=== PATIENT | male | born 1975 | race Caucasian/White ===

== ENCOUNTER → 2016-04-20 | Outpatient (CLI) | payer BC ==
--- NOTE | 2016-04-20 12:08 | REP ---
Renal and bladder ultrasound: There are no comparison studies. The kidneys are normal size: The right kidney measures 12.7 x 6.0 x 5.5 cm. Left kidney measures 12.6 x 6.3 x 5.7 cm. Renal cortical echogenicity is normal bilaterally. There is no hydronephrosis on the right on the left. There are no renal calculi, masses or cysts on the right on the left. Bladder: There are bilateral ureteral jets with color Doppler assessment. The bladder is adequately distended. No bladder wall polyps or masses are identified. Postvoid view of the bladder reveals minimal visible residual fluid. Impression: Essentially negative renal and bladder ultrasound Signed by Kang Brasher MD 04/20/2016 12:00 P
== END ==
LOC: M RAD 11:27
DX: N39.0 Urinary tract infection, site not specified (principal); R31.9 Hematuria, unspecified

== ENCOUNTER 2016-05-04 15:18 | Inpatient (IN) | payer BC ==
[~2016-05-04] VITALS: Ht 177.8 cm; Wt 88.0 kg
[2016-05-04] MEDS ORDERED: KETOROLAC 30 MG/ML VIAL (J1885) As Ordered ONE (16:12)
[2016-05-04 16:34] LABS: BASO % 0.4 % (0.0-1.0); EOS # 0.1 K/mm3 (0.0-0.50); EOS % 0.7 % (0.0-3.0); LARGE UNSTAINED CELL # 0.2 K/mm3 (0.0-0.4); LARGE UNSTAINED CELL % 2.5 % (0.0-4.0); LYMPH # 1.5 K/mm3 (1.5-4.5); LYMPH % 16.2 % (24.0-44.0); MEAN CORPUSCULAR HEMOGLOBIN 29.3 pg (27.0-33.0); MEAN CORPUSCULAR HGB CONC 33.3 g/dl (32.0-36.5); MEAN CORPUSCULAR VOLUME 88.2 fl (80.0-96.0); MONO # 0.4 K/mm3 (0.0-0.8); MONO % 4.8 % (0.0-5.0); NEUTROPHILS # 6.9 K/mm3 (1.8-7.7); NEUTROPHILS % 75.4 % (36.0-66.0); PLATELET COUNT, AUTOMATED 410 k/mm3 (150-450); RED CELL DISTRIBUTION WIDTH 12.5 % (11.5-14.5); WHITE BLOOD COUNT 9.2 K/mm3 (4.0-10.0)
[2016-05-04 16:51] LABS: ALBUMIN 2.8 GM/DL (3.2-5.2); ALBUMIN/GLOBULIN RATIO 0.78 (1.00-1.93); ALKALINE PHOSPHATASE 122 U/L (45-117); ALT/SGPT 59 U/L (12-78); ANION GAP 10 MEQ/L (8-16); AST/SGOT 29 U/L (15-37); BILIRUBIN,DIRECT 0.1 MG/DL (0.0-0.2); BILIRUBIN,TOTAL 0.4 MG/DL (0.2-1.0); BLOOD UREA NITROGEN 13 MG/DL (7-18); CALCIUM LEVEL 8.2 MG/DL (8.5-10.1); CARBON DIOXIDE LEVEL 27 MEQ/L (21-32); CHLORIDE LEVEL 104 MEQ/L (98-107); CREATININE FOR GFR 0.74 MG/DL (0.70-1.30); GLOMERULAR FILTRATION RATE > 60.0 (>60); GLUCOSE, FASTING 91 MG/DL (70-105); SODIUM LEVEL 141 MEQ/L (136-145); TOTAL PROTEIN 6.4 GM/DL (6.4-8.2)
--- NOTE | 2016-05-04 17:17 | REP ---
CT ABDOMEN PELVIS WITHOUT IV CONTRAST: 05/04/2016. Clinical history: Abdominal pain, nonfocal exam, renal colic. Comparison: Renal ultrasound 04/20/2016. Noncontrast protocol utilized with coronal and sagittal reconstructions. CT abdomen: Lung bases clear and without nodule, infiltrate or effusion. No hiatal hernia. Heart not enlarged. There is no pericardial thickening or effusion. Liver, spleen, gallbladder, pancreas and adrenal glands are unremarkable. Stomach collapsed without focal abnormality. Small bowel loops in the abdomen proper without dilatation. Abdominal portion of the colon with stool and gas but no colitis or diverticulitis. There aorta has a few calcifications but no aneurysm. There is no periaortic or other retroperitoneal adenopathy. No pancreatic inflammatory change or adenopathy. Adrenal glands without nodular mass. Kidneys show no stone, hydronephrosis, mass or cyst. No hydroureter or ureteral stone on either side. Bone windows show degenerative disc changes and discogenic sclerosis at the C3-4 with marginal osteophytes anteriorly and posteriorly along with associated disc bulge circumferentially. Lesser degenerative changes at other levels. No compression fracture or destructive lesion. Visualized ribs intact. CT pelvis: Bony hips, pelvis, sacrum, SI joints, lumbosacral junction were intact without acute finding. There is discogenic endplate change at L5, S1 with disc space narrowing and vacuum phenomenon. Bladder is nearly empty. In the deep pelvis, there is a very large sigmoid diverticular abscess centrally slightly displacing the sigmoid towards the right. There is diverticulosis of the mid to distal sigmoid with the abscess appearing to arise just paramedian to the right of midline point of sigmoid. The abscess measures 11.8 cm vertical x 6.4 cm transverse x 9.1 cm AP. Air bubble is seen within it. There are inflammatory changes in the fat adjacent to that abscess. On lung window review, there is no perforation or free air in the upper abdomen. There are some deon-sigmoid bubbles at the abscess noted with diverticulosis minimally in the distal left colon and proximal sigmoid. Rectum unremarkable. No ventral or inguinal hernia nor inguinal adenopathy. Impression: 1. The deep pelvis shows a 11.8 x 9.1 x 6.4 cm sigmoid diverticular abscess arising from the mid to distal sigmoid centrally and just to the right of midline, displacing the sigmoid toward the right and with inflammatory changes in the fat adjacent to that abscess. There are few other areas with diverticulosis; the distal left colon and proximal sigmoid but no other areas of colitis or diverticulitis and no free air or perforation. Appendix seen and normal. The small bowel loops intact. 2. Solid organs in the upper abdomen, gallbladder and stomach are all unremarkable. No hiatal hernia. Bones intact. No ascites or adenopathy. Signed by Kuldip Velazquez MD 05/05/2016 10:58 A
[2016-05-04] MEDS ORDERED: ZOSYN 3.375 GM VIAL (J2543) As Ordered ONE (17:31)
[2016-05-04] MEDS ORDERED: NORCO, ANEXSIA 5/325MG TABLET (HYDROcodone/ACETAMINOPHEN) PO PRN (20:45)
[2016-05-04] MEDS ORDERED: ACETAMINOPHEN TAB 650MG DOSE (2X325MG) PO PRN (20:45)
[2016-05-04] MEDS ORDERED: ONDANSETRON 4MG/2ML VIAL (J2405) IV PRN (20:45)
[2016-05-04] MEDS ORDERED: KETOROLAC 30 MG/ML VIAL (J1885) IV PRN (20:45)
[2016-05-04] MEDS ORDERED: MORPHINE 2 MG/ML 1ML SYRINGE IV PRN (20:45)
--- NOTE | 2016-05-04 21:40 | EDDOCDS ---
Physician Documentation [facility] Name: Jewel Hernandez Age: 40 yrs Sex: Male : 1975 Arrival Date: 05/04/2016 Time: 15:18 Bed I3 / M3 Private MD: Disposition: 05/04/16 17:25 Hospitalization ordered by Santana Smith for Observation. Preliminary diagnosis is Intra-abdominal and pelvic swelling, mass and lump - 12X6X9 CM abscess. - Bed requested for 4 Miles. - Status is Observation. jf3 - Condition is Stable. - Problem is an ongoing problem. - Symptoms have improved. Historical: - Allergies: no known allergies; - Home Meds: 1. none - PMHx: none; - PSHx: right hand; - Social history: Smoking status: Patient uses tobacco products, current every day smoker. No barriers to communication noted, The patient speaks fluent Marshallese, Speaks appropriately for age. - Family history: Not pertinent. - : The pt / caregiver states he / she is not on anticoagulants. Home medication list is obtained from the patient. - Exposure Risk Screening:: None identified. Vital Signs: 05/04 15:20 BP 138 / 72; Pulse 59; Resp 18; Temp 98.5(O); Pulse Ox 100% on R/A; Weight 88.45 kg / ct3 195 lbs (R); Height 5 ft. 10 in. (177.80 cm) (R); Pain 3/10; 19:57 BP 102 / 55; Pulse 53; Resp 18; Temp 97.0; Pulse Ox 95% ; Pain 0/10; ajs 21:10 BP 103 / 55; Pulse 77; Resp 18; Temp 98.6; Pulse Ox 98% ; ajs 15:20 Body Mass Index 27.98 (88.45 kg, 177.80 cm) ct3 MDM: 15:51 NS 0.9% 1000 ml IV at bolus once ordered. cc10 15:51 ketorolac 30 mg IVP once ordered. cc10 15:51 IV Saline Lock ordered. cc10 15:51 Undress patient appropriately for examination ordered. cc10 15:52 Basic Metabolic Profile Ordered. EDMS 15:52 CBC with Diff Ordered. EDMS 15:52 Lipase Ordered. EDMS 15:52 Liver Profile Ordered. EDMS 15:52 Urinalysis Ordered. EDMS 15:52 Urine Culture Ordered. EDMS 15:52 CT ABD & PELVIS: No Contrast Ordered. EDMS 15:52 NOTHING BY MOUTH+DIET ordered. EDMS 16:29 Urinalysis Reviewed. cc10 16:54 Financial registration complete. gjb 17:04 Basic Metabolic Profile Reviewed. cc10 17:04 CBC with Diff Reviewed. cc10 17:04 Liver Profile Reviewed. cc10 17:04 Lipase Reviewed. cc10 17:26 Piperacillin-Tazobactam 3.375 grams IVPB once over 30 mins; dilute in 50mL of NS or D5W cc10 ordered. 17:28 BED REQUEST+ADM ordered. EDMS 17:44 [facility] Payment Agreement was scanned into Livestream and attached to record. gjb 20:46 Admission / Observation Status ordered. EDMS 20:46 CT GUIDE PERC DRAIN ABSCESS Ordered. EDMS 20:46 CLEAR LIQUIDS DIET ordered. EDMS Administered Medications: 16:27 Drug: NS 0.9% 1000 ml Route: IV; Rate: bolus; Site: left hand; [facility] 17:20 Follow up: IV Status: Completed infusion; IV Intake: 1000ml jjr 16:28 Drug: ketorolac 30 mg [ketorolac 30 mg/mL (1 mL) injection solution (1 mL)] Route: IVP; [facility] Site: left hand; 17:37 Drug: Piperacillin-Tazobactam 3.375 grams [piperacillin-tazobactam 3.375 gram jjr intravenous solution] Route: IVPB; Infused Over: 30 mins; Site: left antecubital; 18:08 Follow up: IV Status: Completed infusion; IV Intake: 100ml jjr Signatures: Dispatcher [employer] EDMS Madhavi PaulRN RN rs3 Benny, Kenzie, BARIATRIC PROGRAM COORDINATOR BARIATRIC PROGRAM COORDINATOR tmm1 Kimi Lovell,RN RN Sheng West, PA-C PA-C cc10 Tony Curran RN RN jf3 Beck, Gabriela gjb Knapp, Jean RN jmk Carrie Martinez RN jjr The chart was reviewed and I authenticate all verbal orders and agree with the evaluation and treatment provided.Attachments: 17:44 [facility] Payment Agreement gj MTDD
--- NOTE | 2016-05-04 21:41 | EDDOCDS ---
Nurse's Notes [facility] Name: Jewel Hernandez Age: 40 yrs Sex: Male : 1975 Arrival Date: 05/04/2016 Time: 15:18 Bed I3 / M3 Private MD: Diagnosis: Intra-abdominal and pelvic swelling, mass and lump-12X6X9 CM abscess Presentation: 05/04 15:21 Presenting complaint: Patient states: Recently treated for UTI. C/o abdominal cramps ead over the past 10 days. Adult Sepsis Screening: The patient does not have new or worsening altered mentation. Patient's respiratory rate is less than 22. Systolic blood pressure is greater than 100. Patient has a qSOFA score of 0- Negative Sepsis Screen. Suicide/Homicide risk assessment- the patient denies having any suicidal and/or homicidal ideations and does not present with any other emotional, behavioral or mental health complaints. 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 Transition of care: patient was not received from another setting of care. 15:21 Acuity: SURENDRA Level 3 ead 15:21 Method Of Arrival: Walkin/Carried/Asstd ead Triage Assessment: 15:22 General: Appears in no apparent distress, comfortable, Behavior is appropriate for age, ead cooperative. Pain: Location: abdomen Pain currently is 2 out of 10 on a pain scale. GI: Reports lower abdominal pain, Denies nausea, vomiting. Derm: Skin is pink, warm & dry. 15:22 Pt Declines HIV testing. ead Historical: - Allergies: no known allergies; - Home Meds: 1. none - PMHx: none; - PSHx: right hand; - Social history: Smoking status: Patient uses tobacco products, current every day smoker. No barriers to communication noted, The patient speaks fluent Azeri, Speaks appropriately for age. - Family history: Not pertinent. - : The pt / caregiver states he / she is not on anticoagulants. Home medication list is obtained from the patient. - Exposure Risk Screening:: None identified. Screenin:21 Screening information is obtained from the patient. Fall risk: No risks identified. jjr Assistance ADL's: requires no assistance with activities of daily living. Abuse/DV Screen: The patient / caregiver reports he/she is: not in a situation that causes fear, pain or injury. Nutritional screening: No deficits noted. Advance Directives: There is no active DNR order. home support is adequate. Assessment: 16:19 General: Appears in no apparent distress, well nourished, well groomed, Behavior is jjr appropriate for age. Neurological: No deficits noted. Respiratory: No deficits noted. GI: Abdomen is non- distended Bowel sounds present X 4 quads. Abd is soft X 4 quads Abd is tender to palpation in right lower quadrant and left lower quadrant Reports constipation, lower abdominal pain. : Reports difficulty starting stream. Derm: Skin is pink, warm & dry. 17:42 General: Appears in no apparent distress, reports continued dull ache to lower abdomen, jjr denies needs at this time. 19:46 General: Appears in no apparent distress, comfortable, Behavior is appropriate for age, rs3 cooperative. Pain: Denies pain. Neurological: Level of Consciousness is awake, alert, Oriented to person, place, time. Cardiovascular: Capillary refill < 3 seconds Chest pain is denied. Respiratory: Airway is patent Respiratory effort is even, unlabored, Respiratory pattern is regular, symmetrical. Derm: Skin is pink, warm & dry. 21:11 General: Appears in no apparent distress, comfortable, Behavior is cooperative. Pain: jf3 Denies pain. Neurological: Level of Consciousness is awake, alert, Oriented to person, place, time. Cardiovascular: Capillary refill < 3 seconds Chest pain is denied. Respiratory: Airway is patent Respiratory effort is even, unlabored, Respiratory pattern is regular, symmetrical. Derm: Skin is pink, warm & dry. Vital Signs: 15:20 BP 138 / 72; Pulse 59; Resp 18; Temp 98.5(O); Pulse Ox 100% on R/A; Weight 88.45 kg ct3 (R); Height 5 ft. 10 in. (177.80 cm) (R); Pain 3/10; 19:57 BP 102 / 55; Pulse 53; Resp 18; Temp 97.0; Pulse Ox 95% ; Pain 0/10; ajs 21:10 BP 103 / 55; Pulse 77; Resp 18; Temp 98.6; Pulse Ox 98% ; ajs 15:20 Body Mass Index 27.98 (88.45 kg, 177.80 cm) ct3 Vitals: 15:20 Log In Time: May 04, 2016 at 15:18. ct3 ED Course: 15:19 Patient visited by Pam Reyes PCA. ct3 15:19 Patient moved to Waiting ct3 15:21 Patient moved to Pre RCE ct3 15:21 Triage Initiated ead 15:23 Patient moved to Triage 1 ead 15:34 Sheng Hernandez PA-C is PHCP. cc10 15:34 Ayse Leslie MD is Attending Physician. cc10 15:40 Patient visited by Sheng Hernandez PA-C. cc10 15:40 Patient visited by Sheng Hernandez PA-C. cc10 15:50 Carrie Martinez, RN is Primary Nurse. ar3 15:50 Patient moved to I3 / M3 ar3 16:19 Basic Metabolic Profile Sent. jjr 16:19 CBC with Diff Sent. jjr 16:19 Lipase Sent. jjr 16:19 Liver Profile Sent. jjr 16:20 The patient / caregiver is instructed regarding the plan of care and ED course. jjr 16:20 Inserted saline lock: 20 gauge in left antecubital area and blood collected. Labs jjr drawn. (by ED staff). Sent per order to lab. 16:21 Patient visited by Carrie Martinez RN. jjr 17:05 Patient visited by Delbert Keller PCA. jlf 17:25 Santana Smith is Hospitalizing Provider. cc10 17:41 CT ABD & PELVIS: No Contrast Returned. EDMS 17:42 Patient visited by Carrie Martinez RN. jjr 17:44 [facility] Payment Agreement was scanned into 20x200 and attached to record. gjb 19:06 Primary Nurse role handed off by Carrie Martinez, ABI jjr 19:46 No procedures done that require assistance. rs3 19:47 Patient visited by Madhavi Paul,ABI. rs3 19:57 Patient visited by Kristi eJffries. ajs 21:07 Tony Curran,RN is Primary Nurse. jf3 21:10 Patient visited by Kristi Jeffries. ajs Administered Medications: 16:27 Drug: NS 0.9% 1000 ml Route: IV; Rate: bolus; Site: left hand; jmk 17:20 Follow up: IV Status: Completed infusion; IV Intake: 1000ml jjr 16:28 Drug: ketorolac 30 mg [ketorolac 30 mg/mL (1 mL) injection solution (1 mL)] Route: IVP; dilcia Site: left hand; 17:37 Drug: Piperacillin-Tazobactam 3.375 grams [piperacillin-tazobactam 3.375 gram jjr intravenous solution] Route: IVPB; Infused Over: 30 mins; Site: left antecubital; 18:08 Follow up: IV Status: Completed infusion; IV Intake: 100ml jjr Intake: 17:20 IV: 1000.00ml; Total: 1000.00ml. jjr 18:08 IV: 100.00ml; Total: 1100.00ml. jjr Order Results: Lab Order: Basic Metabolic Profile; [facility] 05/04/16 16:18 Test: GLUCOSE, FASTING; Value: 91; Range: 70-105; Units: MG/DL; Status: F Test: BLOOD UREA NITROGEN; Value: 13; Range: 7-18; Units: MG/DL; Status: F Test: CREATININE FOR GFR; Value: 0.74; Range: 0.70-1.30; Units: MG/DL; Status: F Test: GLOMERULAR FILTRATION RATE; Value: > 60.0; Range: >60; Status: F Test: SODIUM LEVEL; Value: 141; Range: 136-145; Units: MEQ/L; Status: F Test: POTASSIUM SERUM; Value: 4.0; Range: 3.5-5.1; Units: MEQ/L; Status: F Test: CHLORIDE LEVEL; Value: 104; Range: 98-107; Units: MEQ/L; Status: F Test: CARBON DIOXIDE LEVEL; Value: 27; Range: 21-32; Units: MEQ/L; Status: F Test: ANION GAP; Value: 10; Range: 8-16; Units: MEQ/L; Status: F Test: CALCIUM LEVEL; Value: 8.2; Range: 8.5-10.1; Abnormal: Below low normal; Units: MG/DL; Status: F Test Note: ; Units are mL/min/1.73 m2 Chronic Kidney Disease Staging per NKF: Stage I & II GFR >=60 Normal to Mildly Decreased Stage III GFR 30-59 Moderately Decreased Stage IV GFR 15-29 Severely Decreased Stage V GFR <15 Very Little GFR Left ESRD GFR <15 on PET CARETAKER Lab Order: CBC with Diff; [facility] 05/04/16 16:18 Test: WHITE BLOOD COUNT; Value: 9.2; Range: 4.0-10.0; Units: K/mm3; Status: F Test: RED BLOOD COUNT; Value: 4.45; Range: 4.30-6.10; Units: M/mm3; Status: F Test: HEMOGLOBIN; Value: 13.0; Range: 14.0-18.0; Abnormal: Below low normal; Units: g/dl; Status: F Test: HEMATOCRIT; Value: 39.2; Range: 42.0-52.0; Abnormal: Below low normal; Units: %; Status: F Test: MEAN CORPUSCULAR VOLUME; Value: 88.2; Range: 80.0-96.0; Units: fl; Status: F Test: MEAN CORPUSCULAR HEMOGLOBIN; Value: 29.3; Range: 27.0-33.0; Units: pg; Status: F Test: MEAN CORPUSCULAR HGB CONC; Value: 33.3; Range: 32.0-36.5; Units: g/dl; Status: F Test: RED CELL DISTRIBUTION WIDTH; Value: 12.5; Range: 11.5-14.5; Units: %; Status: F Test: PLATELET COUNT, AUTOMATED; Value: 410; Range: 150-450; Units: k/mm3; Status: F Test: NEUTROPHILS %; Value: 75.4; Range: 36.0-66.0; Abnormal: Above high normal; Units: %; Status: F Test: LYMPH %; Value: 16.2; Range: 24.0-44.0; Abnormal: Below low normal; Units: %; Status: F Test: MONO %; Value: 4.8; Range: 0.0-5.0; Units: %; Status: F Test: EOS %; Value: 0.7; Range: 0.0-3.0; Units: %; Status: F Test: BASO %; Value: 0.4; Range: 0.0-1.0; Units: %; Status: F Test: LARGE UNSTAINED CELL %; Value: 2.5; Range: 0.0-4.0; Units: %; Status: F Test: NEUTROPHILS #; Value: 6.9; Range: 1.8-7.7; Units: K/mm3; Status: F Test: LYMPH #; Value: 1.5; Range: 1.5-4.5; Units: K/mm3; Status: F Test: MONO #; Value: 0.4; Range: 0.0-0.8; Units: K/mm3; Status: F Test: EOS #; Value: 0.1; Range: 0.0-0.50; Units: K/mm3; Status: F Test: BASO #; Value: 0.0; Range: 0.0-0.2; Units: K/mm3; Status: F Test: LARGE UNSTAINED CELL #; Value: 0.2; Range: 0.0-0.4; Units: K/mm3; Status: F Lab Order: Lipase; SPEC' 05/04/16 16:18 Test: LIPASE; Value: 88; Range: 73-393; Units: U/L; Status: F Lab Order: Liver Profile; SPEC'M 05/04/16 16:18 Test: AST/SGOT; Value: 29; Range: 15-37; Units: U/L; Status: F Test: ALT/SGPT; Value: 59; Range: 12-78; Units: U/L; Status: F Test: ALKALINE PHOSPHATASE; Value: 122; Range: 45-117; Abnormal: Above high normal; Units: U/L; Status: F Test: BILIRUBIN,TOTAL; Value: 0.4; Range: 0.2-1.0; Units: MG/DL; Status: F Test: BILIRUBIN,DIRECT; Value: 0.1; Range: 0.0-0.2; Units: MG/DL; Status: F Test: TOTAL PROTEIN; Value: 6.4; Range: 6.4-8.2; Units: GM/DL; Status: F Test: ALBUMIN; Value: 2.8; Range: 3.2-5.2; Abnormal: Below low normal; Units: GM/DL; Status: F Test: ALBUMIN/GLOBULIN RATIO; Value: 0.78; Range: 1.00-1.93; Abnormal: Below low normal; Status: F Lab Order: Urinalysis; SPEC'M 05/04/16 15:57 Test: APPEARANCE, URINE; Value: CLEAR; Range: CLEAR; Status: F Test: COLOR, URINE; Value: MORIAH; Range: YELLOW; Status: F Test: PH,URINE; Value: 5.0; Range: 5.0-9.0; Units: UNITS; Status: F Test: SPECIFIC GRAVITY URINE AUTO; Value: 1.033; Range: 1.002-1.035; Status: F Test: PROTEIN, URINE AUTO; Value: 1+; Range: NEGATIVE; Abnormal: Above high normal; Units: mg/dL; Status: F Test: GLUCOSE, URINE (UA) AUTO; Value: NEGATIVE; Range: NEGATIVE; Units: mg/dL; Status: F Test: KETONE, URINE AUTO; Value: TRACE; Range: NEGATIVE; Abnormal: Above high normal; Units: mg/dL; Status: F Test: UROBILINOGEN, URINE AUTO; Value: 4.0; Range: 0.0-2.0; Abnormal: Above high normal; Units: mg/dL; Status: F Test: BILIRUBIN, URINE AUTO; Value: 1+; Range: NEGATIVE; Abnormal: Above high normal; Status: F Test: NITRITE, URINE AUTO; Value: NEGATIVE; Range: NEGATIVE; Status: F Test: LEUKOCYTE ESTERASE, URINE AUTO; Value: NEGATIVE; Range: NEGATIVE; Status: F Test: BLOOD, URINE BLOOD; Value: NEGATIVE; Range: NEGATIVE; Status: F Test: WBC, URINE AUTO; Value: 1; Range: 0-3; Units: /HPF; Status: F Test: RBC, URINE AUTO; Value: 5; Range: 0-3; Abnormal: Above high normal; Units: /HPF; Status: F Test: BACTERIA, URINE AUTO; Value: NEGATIVE; Range: NEGATIVE; Status: F Test: SQUAMOUS EPITHELIAL CELL UR AU; Value: 0; Range: 0-6; Units: /HPF; Status: F Test: MUCUS, URINE; Value: MODERATE; Range: NEGATIVE; Status: F Test: HYALINE CAST, URINE AUTO; Value: 0; Range: 0-1; Units: /LPF; Status: F Radiology Order: CT ABD & PELVIS: No Contrast Test: CT ABD & PELVIS: No Contrast REASON FOR EXAMINATION: Abd. Pain - Generalized, Nn-focal Exam;Renal colic; CT ABDOMEN PELVIS WITHOUT IV CONTRAST: 05/04/2016.; ; Clinical history: Abdominal pain, nonfocal exam, renal colic.; ; Comparison: Renal ultrasound 04/20/2016.; ; Noncontrast protocol utilized with coronal and sagittal reconstructions.; ; CT abdomen: Lung bases clear and without nodule, infiltrate or effusion. No; hiatal hernia. Heart not enlarged. There is no pericardial thickening or; effusion. Liver, spleen, gallbladder, pancreas and adrenal glands are; unremarkable. Stomach collapsed without focal abnormality. Small bowel loops in; the abdomen proper without dilatation. Abdominal portion of the colon with stool; and gas but no colitis or diverticulitis. There aorta has a few calcifications; but no aneurysm. There is no periaortic or other retroperitoneal adenopathy. No; pancreatic inflammatory change or adenopathy. Adrenal glands without nodular; mass. Kidneys show no stone, hydronephrosis, mass or cyst. No hydroureter or; ureteral stone on either side. Bone windows show degenerative disc changes and; discogenic sclerosis at the C3-4 with marginal osteophytes anteriorly and; posteriorly along with associated disc bulge circumferentially. Lesser; degenerative changes at other levels. No compression fracture or destructive; lesion. Visualized ribs intact.; ; CT pelvis: Bony hips, pelvis, sacrum, SI joints, lumbosacral junction were intact; without acute finding. There is discogenic endplate change at L5, S1 with disc; space narrowing and vacuum phenomenon. Bladder is nearly empty. In the deep; pelvis, there is a very large sigmoid diverticular abscess centrally slightly; displacing the sigmoid towards the right. There is diverticulosis of the mid to; distal sigmoid with the abscess appearing to arise just paramedian to the right; of midline point of sigmoid. The abscess measures 11.8 cm vertical x 6.4 cm; transverse x 9.1 cm AP.; ; Air bubble is seen within it. There are inflammatory changes in the fat adjacent; to that abscess. On lung window review. There is no perforation or free air in; the upper abdomen. There is some deon-sigmoid bubbles at the abscess noted with; diverticulosis minimally in the distal left colon and proximal sigmoid. Rectum; unremarkable. No ventral or inguinal hernia nor inguinal adenopathy.; ; Impression:; 1. The deep pelvis shows a 11.8 x 9.1 x 6.4 cm sigmoid diverticular abscess; arising from the mid to distal sigmoid centrally and just to the right of; midline, displacing the sigmoid toward the right and with inflammatory changes in; the fat adjacent to that abscess. There are few other areas with diverticulosis;; the distal left colon and proximal sigmoid but no other areas of colitis or; diverticulitis and no free air or perforation. Appendix seen and normal. The; small bowel loops intact.; 2. Solid organs in the upper abdomen, gallbladder and stomach are all; unremarkable. No hiatal hernia. Bones intact. No ascites or adenopathy.; ; ; ; ; Unreviewed; Outcome: 17:25 Decision to Hospitalize by Provider. cc10 21:37 Discharge Assessment: patient administered narcotics - no. The following High Risk [facility] Discharge criteria are identified: None. Admitted to Med/Surg accompanied by tech, family with patient, via stretcher, with chart. Condition: good. CT Study completed. Admission hand-off: Report Faxed Fax receipt verified by abi guerrero. Property :Personal belongings accompany Pt. 21:40 Patient left the ED. 3 Signatures: Dispatcher [employer] EDMS Yair Ireland,RN RN Carrie Pink RN RN Madhavi Ruelas,RN RN rs3 Trish Kimbrough, PROCESS CONTROL TECH PROCESS CONTROL TECH ar3 Pam Reyes, PROCESS CONTROL TECH PROCESS CONTROL TECH ct3 Kristi Jeffries Jordain, PROCESS CONTROL TECH PROCESS CONTROL TECH baileyf Kimi Lovell,RN Sheng Perez, PA-C PA-C cc10 Tony Curran RN RN jf3 Beck, Gabriela gjb MTDD
[2016-05-04 21:45] VITALS: BP 117/68
[2016-05-04] MEDS: DOCUSATE SODIUM 100 MG CAP PO SCH (22:26)
[2016-05-04] MEDS: LR 1,000 ML IV SCH (22:26)
--- NOTE | 2016-05-04 23:05 | HPE ---
DATE OF ADMISSION: 05/04/2016 ADMISSION DIAGNOSIS: Diverticulitis of the sigmoid colon with pelvic abscess. HISTORY OF PRESENT ILLNESS: The patient is a pleasant 40-year-old man who reports that 2 weeks ago on 04/20/2016, he noted the onset of a burning sensation in the pelvis and with voiding and reported some difficulty urinating. He was seen at [facility] where he was sent for an ultrasound of the bladder and kidneys which was reportedly normal. He was diagnosed with a urinary tract infection and started on Bactrim double-strength twice daily. Since then, he has had occasional fevers and chills. He has had a fairly persistent pressure sensation in the pelvis with occasional severe cramps and persistent trouble emptying his bladder and having bowel movements. He reports that his appetite has been off, though he has been eating perhaps one meal a day. He has not been having regular bowel movements. He reports a sensation of needing to void but not being able to at all times. He reports that after the Bactrim was started, he felt better for the first few days but then it did not seem to be helping, though he continued it through a 10-day course. He has not had any nausea or vomiting. He denies any history of prior similar problems. He was seen today in the [facility] area and underwent evaluation with some blood work and then had a CT scan of the abdomen and pelvis obtained. This revealed a large pelvic abscess in the left side of the pelvis with findings consistent with diverticulosis and diverticulitis of the sigmoid. He is now admitted for IV antibiotics and drainage of his abscess. ALLERGIES: The patient denies any known drug allergies. HOME MEDICATIONS: None. MEDICAL HISTORY: Completely benign. SURGICAL HISTORY: Significant only for some surgery on his hand secondary to an injury. SOCIAL HISTORY: The patient has no primary physician. He does smoke perhaps one-half to three-quarters pack per day of cigarettes. He is accompanied to the emergency department by his and a son. FAMILY HISTORY: Noncontributory. REVIEW OF SYSTEMS: Reveals no history of seizures or stroke. He denies any chest pain, palpitations, shortness of breath, cough or wheezing. He has had no prior diagnosis of urinary tract infection or prostate issues. He denies any bone or joint problems. He has had no history of deep vein thrombosis (DVT) or pulmonary embolus. PHYSICAL EXAMINATION: Reveals a pleasant, fit appearing man sitting quietly on the emergency room (ER) stretcher. His temperature was 98.5 on presentation. His pulse was 59 with a blood pressure of 138/72. Weight is recorded as 88 kg with a height of 5 feet 10 inches, giving him a body mass index (BMI) of approximately 28. He is alert, oriented and cooperative. Sclerae are anicteric. Mucous membranes are moist. The neck is supple without mass. There is no cervical bruit. Heart exam shows a regular rate and rhythm. The lungs are clear to auscultation bilaterally. The abdomen shows a somewhat flat umbilicus with a suggestion of some fascial weakness in this area but not a definite hernia. He has bowel sounds present and the abdomen is nondistended. There is a suggestion of a mass low in the left lower quadrant in the suprapubic area with some associated moderate direct tenderness. There is no sign of inguinal hernia. Extremities: Show no peripheral edema. He has palpable radial and pedal pulses. His laboratory studies include a CBC that shows a white count of 9.2 with the differential showing 75% neutrophils, 16% lymphocytes and 5% monocytes. Hemoglobin is 13 with a hematocrit of 39 and the platelet count is 410,000. His chemistry profile shows normal electrolytes with a BUN of 13, creatinine of 0.7 and normal glucose of 91. Liver function tests are normal with the exception of a minimal elevation of the alkaline phosphatase at 122. Protein is 6.4 with an albumin which is slightly low at 2.8. Urinalysis shows a pH of 5.0 with a specific gravity of 1.033 with 1+ protein, trace ketones only 1 white cell and 5 red cells per high-power field with negative nitrite, leukocyte esterase and bacteria. CT scan of the abdomen and pelvis identifies a large abscess in the left side of the pelvis lateral to the sigmoid colon. This is maximally 11.8 cm in size according to the radiologist reading. He does have diverticulosis and evidence for some inflammation of the sigmoid colon adjacent to the abscess. There are no other acute inflammatory changes within the abdomen and no evidence of free air or free fluid. IMPRESSION: Large left-sided pelvic abscess secondary to diverticulitis. PLAN: The patient has a large abscess which I believe would have some risk of rupture leading to diffuse peritonitis. I believe a more urgent approach to addressing this is appropriate. I have recommended that we admit him to the hospital for inpatient management. He has received a dose of Zosyn in the emergency department, and he will be kept on Zosyn every 6 hours. I will allow him to take some clear liquids tonight, but these will be held after 2 o'clock in the morning on 05/05/2016, so that he could undergo a percutaneous CT-guided drainage of his abscess. I have reviewed the CT images myself, and I believe there is an adequate window for placement of a drain anteriorly on the left. Once his abscess is drained, we can obtain material for cultures to better direct his continuing antibiotic therapy. Once the abscess is adequately drained, we can resume a diet and proceed from there. With any luck, his abscess will resolve with percutaneous drainage and continued IV and then oral antibiotics. The patient and his were counseled regarding the plan and desire to proceed as I have outlined. MIRLANDE
[2016-05-05] MEDS: PIPERACILLIN/TAZOBACTAM SOD 3.375 GM in D5W MINI-BAG PLUS 50 ML IV SCH ×4 (00:34→17:20)
[2016-05-05 02:00] VITALS: BP 117/58
[2016-05-05] MEDS: LR 1,000 ML IV SCH ×2 (05:25→12:37)
[2016-05-05 06:00] VITALS: BP 121/72
[2016-05-05] MEDS ORDERED: LIDOCAINE 1% MDV 20ML VIAL As Ordered ONE (09:06)
[2016-05-05 10:00] VITALS: BP 140/77
[2016-05-05] MEDS: DOCUSATE SODIUM 100 MG CAP PO SCH ×2 (11:35→21:18)
[2016-05-05 14:00] VITALS: BP 140/84
[2016-05-05] MEDS ORDERED: MIRALAX *UNIT DOSE* 17GM PACKET PO PRN (15:00)
--- NOTE | 2016-05-05 17:33 | REP ---
ULTRASOUND GUIDED PELVIC ABSCESS DRAIN: The procedure was performed under the direct supervision of Dr. Snow. The patient has a history of an 11.8 x 9.1 x 6.4 cm sigmoid diverticular abscess seen on a previous CT scan performed on 05/04/2016. The risks and benefits of the procedure were explained to the patient and informed consent was obtained. The pelvic abscess was localized using ultrasound guidance. The skin was prepped and draped in a sterile fashion. 1% Xylocaine was used as local anesthetic. Using ultrasound guidance a #10-Bengali skater APDL catheter was inserted using trocar technique. 180 mL of beige-colored fluid was withdrawn and sent to the lab. The abscess cavity was flushed with 4 10 mL aliquots of sterile saline which returned a total of 100 mL of fluid. The catheter was affixed to the skin and sterile dressing was applied. The catheter was connected to a gravity drainage bag. The patient tolerated the procedure well and there were no immediate complications. Reviewed by MARCIA Agrawal 05/06/2016 03:59 PEdited and Signed by Luisito Snow MD 05/06/2016 04:32 P
[2016-05-05 17:45] VITALS: BP 145/79
[2016-05-05 20:00] VITALS: BP 131/64
[2016-05-06] VITALS: BP 115/60
[2016-05-06] MEDS: PIPERACILLIN/TAZOBACTAM SOD 3.375 GM in D5W MINI-BAG PLUS 50 ML IV SCH ×3 (01:01→12:05)
[2016-05-06 04:00] VITALS: BP 112/55
[2016-05-06 07:09] LABS: BASO % 0.3 % (0.0-1.0); EOS # 0.2 K/mm3 (0.0-0.50); EOS % 2.6 % (0.0-3.0); LARGE UNSTAINED CELL # 0.2 K/mm3 (0.0-0.4); LARGE UNSTAINED CELL % 2.9 % (0.0-4.0); LYMPH # 1.7 K/mm3 (1.5-4.5); LYMPH % 24.3 % (24.0-44.0); MEAN CORPUSCULAR HGB CONC 32.9 g/dl (32.0-36.5); MEAN CORPUSCULAR VOLUME 88.3 fl (80.0-96.0); MONO # 0.3 K/mm3 (0.0-0.8); MONO % 4.5 % (0.0-5.0); NEUTROPHILS # 4.5 K/mm3 (1.8-7.7); NEUTROPHILS % 65.4 % (36.0-66.0); PLATELET COUNT, AUTOMATED 372 k/mm3 (150-450); RED CELL DISTRIBUTION WIDTH 12.4 % (11.5-14.5); WHITE BLOOD COUNT 6.8 K/mm3 (4.0-10.0)
[2016-05-06 07:24] LABS: ALBUMIN 2.3 GM/DL (3.2-5.2); ALBUMIN/GLOBULIN RATIO 0.61 (1.00-1.93); ALKALINE PHOSPHATASE 107 U/L (45-117); ALT/SGPT 59 U/L (12-78); ANION GAP 6 MEQ/L (8-16); AST/SGOT 20 U/L (15-37); BILIRUBIN,TOTAL 0.2 MG/DL (0.2-1.0); BLOOD UREA NITROGEN 10 MG/DL (7-18); CALCIUM LEVEL 8.1 MG/DL (8.5-10.1); CARBON DIOXIDE LEVEL 29 MEQ/L (21-32); CHLORIDE LEVEL 106 MEQ/L (98-107); CREATININE FOR GFR 0.78 MG/DL (0.70-1.30); GLOMERULAR FILTRATION RATE > 60.0 (>60); GLUCOSE, FASTING 105 MG/DL (70-105); SODIUM LEVEL 141 MEQ/L (136-145); TOTAL PROTEIN 6.1 GM/DL (6.4-8.2)
[2016-05-06 08:00] VITALS: BP 138/62
[2016-05-06] MEDS: DOCUSATE SODIUM 100 MG CAP PO SCH (08:27)
[2016-05-06 12:00] VITALS: BP 119/62
[2016-05-06 16:00] VITALS: BP_SYST 123
[2016-05-06] MEDS ORDERED: FLAG500T PO (17:46)
[2016-05-06] MEDS ORDERED: CIPR500T89 PO (17:46)
--- NOTE | 2016-05-06 22:40 | EDDOCDS ---
Physician Documentation [facility] Name: Jewel Hernandez Age: 40 yrs Sex: Male : 1975 Arrival Date: 05/04/2016 Time: 15:18 Bed I3 / M3 Private MD: Disposition: 05/04/16 17:25 Hospitalization ordered by Santana Smith for Observation. Preliminary diagnosis is Intra-abdominal and pelvic swelling, mass and lump - 12X6X9 CM abscess. - Bed requested for 4 [place]. - Status is Observation. jf3 - Condition is Stable. - Problem is an ongoing problem. - Symptoms have improved. Historical: - Allergies: no known allergies; - Home Meds: 1. none - PMHx: none; - PSHx: right hand; - Social history: Smoking status: Patient uses tobacco products, current every day smoker. No barriers to communication noted, The patient speaks fluent Barbadian, Speaks appropriately for age. - Family history: Not pertinent. - : The pt / caregiver states he / she is not on anticoagulants. Home medication list is obtained from the patient. - Exposure Risk Screening:: None identified. Vital Signs: 05/04 15:20 BP 138 / 72; Pulse 59; Resp 18; Temp 98.5(O); Pulse Ox 100% on R/A; Weight 88.45 kg / ct3 195 lbs (R); Height 5 ft. 10 in. (177.80 cm) (R); Pain 3/10; 19:57 BP 102 / 55; Pulse 53; Resp 18; Temp 97.0; Pulse Ox 95% ; Pain 0/10; ajs 21:10 BP 103 / 55; Pulse 77; Resp 18; Temp 98.6; Pulse Ox 98% ; ajs 15:20 Body Mass Index 27.98 (88.45 kg, 177.80 cm) ct3 MDM: 15:51 NS 0.9% 1000 ml IV at bolus once ordered. cc10 15:51 ketorolac 30 mg IVP once ordered. cc10 15:51 IV Saline Lock ordered. cc10 15:51 Undress patient appropriately for examination ordered. cc10 15:52 Basic Metabolic Profile Ordered. EDMS 15:52 CBC with Diff Ordered. EDMS 15:52 Lipase Ordered. EDMS 15:52 Liver Profile Ordered. EDMS 15:52 Urinalysis Ordered. EDMS 15:52 Urine Culture Ordered. EDMS 15:52 CT ABD & PELVIS: No Contrast Ordered. EDMS 15:52 NOTHING BY MOUTH+DIET ordered. EDMS 16:29 Urinalysis Reviewed. cc10 16:54 Financial registration complete. gjb 17:04 Basic Metabolic Profile Reviewed. cc10 17:04 CBC with Diff Reviewed. cc10 17:04 Liver Profile Reviewed. cc10 17:04 Lipase Reviewed. cc10 17:26 Piperacillin-Tazobactam 3.375 grams IVPB once over 30 mins; dilute in 50mL of NS or D5W cc10 ordered. 17:28 BED REQUEST+ADM ordered. EDMS 17:44 [facility] Payment Agreement was scanned into [employer] and attached to record. gjb 20:46 Admission / Observation Status ordered. EDMS 20:46 CT GUIDE PERC DRAIN ABSCESS Ordered. EDMS 20:46 CLEAR LIQUIDS DIET ordered. EDMS 0207 11:17 T-Sheet-- Draft Copy was scanned into [employer] and attached to record. 11:18 Radiology Report was scanned into [employer] and attached to record. gb Administered Medications: 02 16:27 Drug: NS 0.9% 1000 ml Route: IV; Rate: bolus; Site: left hand; [facility] 17:20 Follow up: IV Status: Completed infusion; IV Intake: 1000ml jjr 16:28 Drug: ketorolac 30 mg [ketorolac 30 mg/mL (1 mL) injection solution (1 mL)] Route: IVP; [facility] Site: left hand; 17:37 Drug: Piperacillin-Tazobactam 3.375 grams [piperacillin-tazobactam 3.375 gram jjr intravenous solution] Route: IVPB; Infused Over: 30 mins; Site: left antecubital; 18:08 Follow up: IV Status: Completed infusion; IV Intake: 100ml jjr Signatures: Dispatcher [employer] EDMS Annette Balderrama, Reg Reg gb Madhavi PaulRN RN rs3 Kenzie Zapata, PATIENT REGISTRATION SPECIALIST PATIENT REGISTRATION SPECIALIST tmm1 Kimi LovellRN RN Sheng West, PA-C PA-C cc10 Tony Curran RN RN jf3 Beck, Gabriela gjb Ireland, Yair Carrie Flores RNjkelvin The chart was reviewed and I authenticate all verbal orders and agree with the evaluation and treatment provided.Attachments: 17:44 [facility] Payment Agreement gjb 05/05 11:17 T-Sheet-- Draft Copy gb Chart Complete MTDD
--- NOTE | 2016-05-06 22:40 | EDDOCDS ---
Physician Documentation [facility] Name: Jewel Hernandez Age: 40 yrs Sex: Male : 1975 Arrival Date: 05/04/2016 Time: 15:18 Bed I3 / M3 Private MD: Disposition: 05/04/16 17:25 Hospitalization ordered by Santana Smith for Observation. Preliminary diagnosis is Intra-abdominal and pelvic swelling, mass and lump - 12X6X9 CM abscess. - Bed requested for 4 [place]. - Status is Observation. jf3 - Condition is Stable. - Problem is an ongoing problem. - Symptoms have improved. Historical: - Allergies: no known allergies; - Home Meds: 1. none - PMHx: none; - PSHx: right hand; - Social history: Smoking status: Patient uses tobacco products, current every day smoker. No barriers to communication noted, The patient speaks fluent Togolese, Speaks appropriately for age. - Family history: Not pertinent. - : The pt / caregiver states he / she is not on anticoagulants. Home medication list is obtained from the patient. - Exposure Risk Screening:: None identified. Vital Signs: 05/04 15:20 BP 138 / 72; Pulse 59; Resp 18; Temp 98.5(O); Pulse Ox 100% on R/A; Weight 88.45 kg / ct3 195 lbs (R); Height 5 ft. 10 in. (177.80 cm) (R); Pain 3/10; 19:57 BP 102 / 55; Pulse 53; Resp 18; Temp 97.0; Pulse Ox 95% ; Pain 0/10; ajs 21:10 BP 103 / 55; Pulse 77; Resp 18; Temp 98.6; Pulse Ox 98% ; ajs 15:20 Body Mass Index 27.98 (88.45 kg, 177.80 cm) ct3 MDM: 15:51 NS 0.9% 1000 ml IV at bolus once ordered. cc10 15:51 ketorolac 30 mg IVP once ordered. cc10 15:51 IV Saline Lock ordered. cc10 15:51 Undress patient appropriately for examination ordered. cc10 15:52 Basic Metabolic Profile Ordered. EDMS 15:52 CBC with Diff Ordered. EDMS 15:52 Lipase Ordered. EDMS 15:52 Liver Profile Ordered. EDMS 15:52 Urinalysis Ordered. EDMS 15:52 Urine Culture Ordered. EDMS 15:52 CT ABD & PELVIS: No Contrast Ordered. EDMS 15:52 NOTHING BY MOUTH+DIET ordered. EDMS 16:29 Urinalysis Reviewed. cc10 16:54 Financial registration complete. gjb 17:04 Basic Metabolic Profile Reviewed. cc10 17:04 CBC with Diff Reviewed. cc10 17:04 Liver Profile Reviewed. cc10 17:04 Lipase Reviewed. cc10 17:26 Piperacillin-Tazobactam 3.375 grams IVPB once over 30 mins; dilute in 50mL of NS or D5W cc10 ordered. 17:28 BED REQUEST+ADM ordered. EDMS 17:44 [facility] Payment Agreement was scanned into [employer] and attached to record. gjb 20:46 Admission / Observation Status ordered. EDMS 20:46 CT GUIDE PERC DRAIN ABSCESS Ordered. EDMS 20:46 CLEAR LIQUIDS DIET ordered. EDMS 0207 11:17 T-Sheet-- Draft Copy was scanned into [employer] and attached to record. 11:18 Radiology Report was scanned into [employer] and attached to record. gb Administered Medications: 02 16:27 Drug: NS 0.9% 1000 ml Route: IV; Rate: bolus; Site: left hand; [facility] 17:20 Follow up: IV Status: Completed infusion; IV Intake: 1000ml jjr 16:28 Drug: ketorolac 30 mg [ketorolac 30 mg/mL (1 mL) injection solution (1 mL)] Route: IVP; [facility] Site: left hand; 17:37 Drug: Piperacillin-Tazobactam 3.375 grams [piperacillin-tazobactam 3.375 gram jjr intravenous solution] Route: IVPB; Infused Over: 30 mins; Site: left antecubital; 18:08 Follow up: IV Status: Completed infusion; IV Intake: 100ml jjr Signatures: Dispatcher [employer] EDMS Annette Balderrama, Reg Reg gb Madhavi PaulRN RN rs3 Kenzie Zapata, BREAST SPLITTER BREAST SPLITTER tmm1 Kimi LovellRN RN Sheng West, PA-C PA-C cc10 Tony Curran RN RN jf3 Beck, Gabriela gjb Ireland, Yair Carrie Flores RNjkelvin The chart was reviewed and I authenticate all verbal orders and agree with the evaluation and treatment provided.Attachments: 17:44 [facility] Payment Agreement gjb 05/05 11:17 T-Sheet-- Draft Copy gb Chart Complete MTDD
--- NOTE | 2016-05-06 22:40 | EDDOCDS ---
Nurse's Notes [facility] Name: Jewel Hernandez Age: 40 yrs Sex: Male : 1975 Arrival Date: 05/04/2016 Time: 15:18 Bed I3 / M3 Private MD: Diagnosis: Intra-abdominal and pelvic swelling, mass and lump-[id number] CM abscess Presentation: 05/04 15:21 Presenting complaint: Patient states: Recently treated for UTI. C/o abdominal cramps ead over the past 10 days. Adult Sepsis Screening: The patient does not have new or worsening altered mentation. Patient's respiratory rate is less than 22. Systolic blood pressure is greater than 100. Patient has a qSOFA score of 0- Negative Sepsis Screen. Suicide/Homicide risk assessment- the patient denies having any suicidal and/or homicidal ideations and does not present with any other emotional, behavioral or mental health complaints. 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 Transition of care: patient was not received from another setting of care. 15:21 Acuity: SURENDRA Level 3 ead 15:21 Method Of Arrival: Walkin/Carried/Asstd ead Triage Assessment: 15:22 General: Appears in no apparent distress, comfortable, Behavior is appropriate for age, ead cooperative. Pain: Location: abdomen Pain currently is 2 out of 10 on a pain scale. GI: Reports lower abdominal pain, Denies nausea, vomiting. Derm: Skin is pink, warm & dry. 15:22 Pt Declines HIV testing. ead Historical: - Allergies: no known allergies; - Home Meds: 1. none - PMHx: none; - PSHx: right hand; - Social history: Smoking status: Patient uses tobacco products, current every day smoker. No barriers to communication noted, The patient speaks fluent Mongolian, Speaks appropriately for age. - Family history: Not pertinent. - : The pt / caregiver states he / she is not on anticoagulants. Home medication list is obtained from the patient. - Exposure Risk Screening:: None identified. Screenin:21 Screening information is obtained from the patient. Fall risk: No risks identified. jjr Assistance ADL's: requires no assistance with activities of daily living. Abuse/DV Screen: The patient / caregiver reports he/she is: not in a situation that causes fear, pain or injury. Nutritional screening: No deficits noted. Advance Directives: There is no active DNR order. home support is adequate. Assessment: 16:19 General: Appears in no apparent distress, well nourished, well groomed, Behavior is jjr appropriate for age. Neurological: No deficits noted. Respiratory: No deficits noted. GI: Abdomen is non- distended Bowel sounds present X 4 quads. Abd is soft X 4 quads Abd is tender to palpation in right lower quadrant and left lower quadrant Reports constipation, lower abdominal pain. : Reports difficulty starting stream. Derm: Skin is pink, warm & dry. 17:42 General: Appears in no apparent distress, reports continued dull ache to lower abdomen, jjr denies needs at this time. 19:46 General: Appears in no apparent distress, comfortable, Behavior is appropriate for age, rs3 cooperative. Pain: Denies pain. Neurological: Level of Consciousness is awake, alert, Oriented to person, place, time. Cardiovascular: Capillary refill < 3 seconds Chest pain is denied. Respiratory: Airway is patent Respiratory effort is even, unlabored, Respiratory pattern is regular, symmetrical. Derm: Skin is pink, warm & dry. 21:11 General: Appears in no apparent distress, comfortable, Behavior is cooperative. Pain: jf3 Denies pain. Neurological: Level of Consciousness is awake, alert, Oriented to person, place, time. Cardiovascular: Capillary refill < 3 seconds Chest pain is denied. Respiratory: Airway is patent Respiratory effort is even, unlabored, Respiratory pattern is regular, symmetrical. Derm: Skin is pink, warm & dry. Vital Signs: 15:20 BP 138 / 72; Pulse 59; Resp 18; Temp 98.5(O); Pulse Ox 100% on R/A; Weight 88.45 kg ct3 (R); Height 5 ft. 10 in. (177.80 cm) (R); Pain 3/10; 19:57 BP 102 / 55; Pulse 53; Resp 18; Temp 97.0; Pulse Ox 95% ; Pain 0/10; ajs 21:10 BP 103 / 55; Pulse 77; Resp 18; Temp 98.6; Pulse Ox 98% ; ajs 15:20 Body Mass Index 27.98 (88.45 kg, 177.80 cm) ct3 Vitals: 15:20 Log In Time: May 04, 2016 at 15:18. ct3 ED Course: 15:19 Patient visited by Pam Reyes PCA. ct3 15:19 Patient moved to Waiting ct3 15:21 Patient moved to Pre RCE ct3 15:21 Triage Initiated ead 15:23 Patient moved to Triage 1 ead 15:34 Sheng Hernandez PA-C is PHCP. cc10 15:34 Ayse Leslie MD is Attending Physician. cc10 15:40 Patient visited by Sheng Hernandez PA-C. cc10 15:40 Patient visited by Sheng Hernandez PA-C. cc10 15:50 Carrie Martinez, RN is Primary Nurse. ar3 15:50 Patient moved to I3 / M3 ar3 16:19 Basic Metabolic Profile Sent. jjr 16:19 CBC with Diff Sent. jjr 16:19 Lipase Sent. jjr 16:19 Liver Profile Sent. jjr 16:20 The patient / caregiver is instructed regarding the plan of care and ED course. jjr 16:20 Inserted saline lock: 20 gauge in left antecubital area and blood collected. Labs jjr drawn. (by ED staff). Sent per order to lab. 16:21 Patient visited by Carrie Martinez RN. jjr 17:05 Patient visited by Delbert Keller PCA. jlf 17:25 Santana Smith is Hospitalizing Provider. cc10 17:41 CT ABD & PELVIS: No Contrast Returned. EDMS 17:42 Patient visited by Carrie Martinez RN. jjr 17:44 [facility] [place] was scanned into [employer] and attached to record. gjb 19:06 Primary Nurse role handed off by Carrie Martinez, ABI jjr 19:46 No procedures done that require assistance. rs3 19:47 Patient visited by Madhavi Paul,ABI. rs3 19:57 Patient visited by Kristi Jeffries. ajs 21:07 Tony Curran,RN is Primary Nurse. jf3 21:10 Patient visited by Kristi Jeffries. ajs 05/05 11:17 T-Sheet-- Draft Copy was scanned into [employer] and attached to record. gb 11:18 Radiology Report was scanned into [employer] and attached to record. gb Administered Medications: 05/04 16:27 Drug: NS 0.9% 1000 ml Route: IV; Rate: bolus; Site: left hand; [facility] 17:20 Follow up: IV Status: Completed infusion; IV Intake: 1000ml jjr 16:28 Drug: ketorolac 30 mg [ketorolac 30 mg/mL (1 mL) injection solution (1 mL)] Route: IVP; [facility] Site: left hand; 17:37 Drug: Piperacillin-Tazobactam 3.375 grams [piperacillin-tazobactam 3.375 gram jjr intravenous solution] Route: IVPB; Infused Over: 30 mins; Site: left antecubital; 18:08 Follow up: IV Status: Completed infusion; IV Intake: 100ml jjr Intake: 17:20 IV: 1000.00ml; Total: 1000.00ml. jjr 18:08 IV: 100.00ml; Total: 1100.00ml. jjr Order Results: Lab Order: Basic Metabolic Profile; [facility] 05/04/16 16:18 Test: GLUCOSE, FASTING; Value: 91; Range: 70-105; Units: MG/DL; Status: F Test: BLOOD UREA NITROGEN; Value: 13; Range: 7-18; Units: MG/DL; Status: F Test: CREATININE FOR GFR; Value: 0.74; Range: 0.70-1.30; Units: MG/DL; Status: F Test: GLOMERULAR FILTRATION RATE; Value: > 60.0; Range: >60; Status: F Test: SODIUM LEVEL; Value: 141; Range: 136-145; Units: MEQ/L; Status: F Test: POTASSIUM SERUM; Value: 4.0; Range: 3.5-5.1; Units: MEQ/L; Status: F Test: CHLORIDE LEVEL; Value: 104; Range: 98-107; Units: MEQ/L; Status: F Test: CARBON DIOXIDE LEVEL; Value: 27; Range: 21-32; Units: MEQ/L; Status: F Test: ANION GAP; Value: 10; Range: 8-16; Units: MEQ/L; Status: F Test: CALCIUM LEVEL; Value: 8.2; Range: 8.5-10.1; Abnormal: Below low normal; Units: MG/DL; Status: F Test Note: ; Units are mL/min/1.73 m2 Chronic Kidney Disease Staging per NKF: Stage I & II GFR >=60 Normal to Mildly Decreased Stage III GFR 30-59 Moderately Decreased Stage IV GFR 15-29 Severely Decreased Stage V GFR <15 Very Little GFR Left ESRD GFR <15 on DENSITOMETER READER Lab Order: CBC with Diff; [facility] 05/04/16 16:18 Test: WHITE BLOOD COUNT; Value: 9.2; Range: 4.0-10.0; Units: K/mm3; Status: F Test: RED BLOOD COUNT; Value: 4.45; Range: 4.30-6.10; Units: M/mm3; Status: F Test: HEMOGLOBIN; Value: 13.0; Range: 14.0-18.0; Abnormal: Below low normal; Units: g/dl; Status: F Test: HEMATOCRIT; Value: 39.2; Range: 42.0-52.0; Abnormal: Below low normal; Units: %; Status: F Test: MEAN CORPUSCULAR VOLUME; Value: 88.2; Range: 80.0-96.0; Units: fl; Status: F Test: MEAN CORPUSCULAR HEMOGLOBIN; Value: 29.3; Range: 27.0-33.0; Units: pg; Status: F Test: MEAN CORPUSCULAR HGB CONC; Value: 33.3; Range: 32.0-36.5; Units: g/dl; Status: F Test: RED CELL DISTRIBUTION WIDTH; Value: 12.5; Range: 11.5-14.5; Units: %; Status: F Test: PLATELET COUNT, AUTOMATED; Value: 410; Range: 150-450; Units: k/mm3; Status: F Test: NEUTROPHILS %; Value: 75.4; Range: 36.0-66.0; Abnormal: Above high normal; Units: %; Status: F Test: LYMPH %; Value: 16.2; Range: 24.0-44.0; Abnormal: Below low normal; Units: %; Status: F Test: MONO %; Value: 4.8; Range: 0.0-5.0; Units: %; Status: F Test: EOS %; Value: 0.7; Range: 0.0-3.0; Units: %; Status: F Test: BASO %; Value: 0.4; Range: 0.0-1.0; Units: %; Status: F Test: LARGE UNSTAINED CELL %; Value: 2.5; Range: 0.0-4.0; Units: %; Status: F Test: NEUTROPHILS #; Value: 6.9; Range: 1.8-7.7; Units: K/mm3; Status: F Test: LYMPH #; Value: 1.5; Range: 1.5-4.5; Units: K/mm3; Status: F Test: MONO #; Value: 0.4; Range: 0.0-0.8; Units: K/mm3; Status: F Test: EOS #; Value: 0.1; Range: 0.0-0.50; Units: K/mm3; Status: F Test: BASO #; Value: 0.0; Range: 0.0-0.2; Units: K/mm3; Status: F Test: LARGE UNSTAINED CELL #; Value: 0.2; Range: 0.0-0.4; Units: K/mm3; Status: F Lab Order: Lipase; [facility] 05/04/16 16:18 Test: LIPASE; Value: 88; Range: 73-393; Units: U/L; Status: F Lab Order: Liver Profile; [facility] 05/04/16 16:18 Test: AST/SGOT; Value: 29; Range: 15-37; Units: U/L; Status: F Test: ALT/SGPT; Value: 59; Range: 12-78; Units: U/L; Status: F Test: ALKALINE PHOSPHATASE; Value: 122; Range: 45-117; Abnormal: Above high normal; Units: U/L; Status: F Test: BILIRUBIN,TOTAL; Value: 0.4; Range: 0.2-1.0; Units: MG/DL; Status: F Test: BILIRUBIN,DIRECT; Value: 0.1; Range: 0.0-0.2; Units: MG/DL; Status: F Test: TOTAL PROTEIN; Value: 6.4; Range: 6.4-8.2; Units: GM/DL; Status: F Test: ALBUMIN; Value: 2.8; Range: 3.2-5.2; Abnormal: Below low normal; Units: GM/DL; Status: F Test: ALBUMIN/GLOBULIN RATIO; Value: 0.78; Range: 1.00-1.93; Abnormal: Below low normal; Status: F Lab Order: Urinalysis; SPEC'M 05/04/16 15:57 Test: APPEARANCE, URINE; Value: CLEAR; Range: CLEAR; Status: F Test: COLOR, URINE; Value: MORIAH; Range: YELLOW; Status: F Test: PH,URINE; Value: 5.0; Range: 5.0-9.0; Units: UNITS; Status: F Test: SPECIFIC GRAVITY URINE AUTO; Value: 1.033; Range: 1.002-1.035; Status: F Test: PROTEIN, URINE AUTO; Value: 1+; Range: NEGATIVE; Abnormal: Above high normal; Units: mg/dL; Status: F Test: GLUCOSE, URINE (UA) AUTO; Value: NEGATIVE; Range: NEGATIVE; Units: mg/dL; Status: F Test: KETONE, URINE AUTO; Value: TRACE; Range: NEGATIVE; Abnormal: Above high normal; Units: mg/dL; Status: F Test: UROBILINOGEN, URINE AUTO; Value: 4.0; Range: 0.0-2.0; Abnormal: Above high normal; Units: mg/dL; Status: F Test: BILIRUBIN, URINE AUTO; Value: 1+; Range: NEGATIVE; Abnormal: Above high normal; Status: F Test: NITRITE, URINE AUTO; Value: NEGATIVE; Range: NEGATIVE; Status: F Test: LEUKOCYTE ESTERASE, URINE AUTO; Value: NEGATIVE; Range: NEGATIVE; Status: F Test: BLOOD, URINE BLOOD; Value: NEGATIVE; Range: NEGATIVE; Status: F Test: WBC, URINE AUTO; Value: 1; Range: 0-3; Units: /HPF; Status: F Test: RBC, URINE AUTO; Value: 5; Range: 0-3; Abnormal: Above high normal; Units: /HPF; Status: F Test: BACTERIA, URINE AUTO; Value: NEGATIVE; Range: NEGATIVE; Status: F Test: SQUAMOUS EPITHELIAL CELL UR AU; Value: 0; Range: 0-6; Units: /HPF; Status: F Test: MUCUS, URINE; Value: MODERATE; Range: NEGATIVE; Status: F Test: HYALINE CAST, URINE AUTO; Value: 0; Range: 0-1; Units: /LPF; Status: F Radiology Order: CT ABD & PELVIS: No Contrast Test: CT ABD & PELVIS: No Contrast REASON FOR EXAMINATION: Abd. Pain - Generalized, Nn-focal Exam;Renal colic; CT ABDOMEN PELVIS WITHOUT IV CONTRAST: 05/04/2016.; ; Clinical history: Abdominal pain, nonfocal exam, renal colic.; ; Comparison: Renal ultrasound 04/20/2016.; ; Noncontrast protocol utilized with coronal and sagittal reconstructions.; ; CT abdomen: Lung bases clear and without nodule, infiltrate or effusion. No; hiatal hernia. Heart not enlarged. There is no pericardial thickening or; effusion. Liver, spleen, gallbladder, pancreas and adrenal glands are; unremarkable. Stomach collapsed without focal abnormality. Small bowel loops in; the abdomen proper without dilatation. Abdominal portion of the colon with stool; and gas but no colitis or diverticulitis. There aorta has a few calcifications; but no aneurysm. There is no periaortic or other retroperitoneal adenopathy. No; pancreatic inflammatory change or adenopathy. Adrenal glands without nodular; mass. Kidneys show no stone, hydronephrosis, mass or cyst. No hydroureter or; ureteral stone on either side. Bone windows show degenerative disc changes and; discogenic sclerosis at the C3-4 with marginal osteophytes anteriorly and; posteriorly along with associated disc bulge circumferentially. Lesser; degenerative changes at other levels. No compression fracture or destructive; lesion. Visualized ribs intact.; ; CT pelvis: Bony hips, pelvis, sacrum, SI joints, lumbosacral junction were intact; without acute finding. There is discogenic endplate change at L5, S1 with disc; space narrowing and vacuum phenomenon. Bladder is nearly empty. In the deep; pelvis, there is a very large sigmoid diverticular abscess centrally slightly; displacing the sigmoid towards the right. There is diverticulosis of the mid to; distal sigmoid with the abscess appearing to arise just paramedian to the right; of midline point of sigmoid. The abscess measures 11.8 cm vertical x 6.4 cm; transverse x 9.1 cm AP.; ; Air bubble is seen within it. There are inflammatory changes in the fat adjacent; to that abscess. On lung window review. There is no perforation or free air in; the upper abdomen. There is some deon-sigmoid bubbles at the abscess noted with; diverticulosis minimally in the distal left colon and proximal sigmoid. Rectum; unremarkable. No ventral or inguinal hernia nor inguinal adenopathy.; ; Impression:; 1. The deep pelvis shows a 11.8 x 9.1 x 6.4 cm sigmoid diverticular abscess; arising from the mid to distal sigmoid centrally and just to the right of; midline, displacing the sigmoid toward the right and with inflammatory changes in; the fat adjacent to that abscess. There are few other areas with diverticulosis;; the distal left colon and proximal sigmoid but no other areas of colitis or; diverticulitis and no free air or perforation. Appendix seen and normal. The; small bowel loops intact.; 2. Solid organs in the upper abdomen, gallbladder and stomach are all; unremarkable. No hiatal hernia. Bones intact. No ascites or adenopathy.; ; ; ; ; Unreviewed; Outcome: 17:25 Decision to Hospitalize by Provider. cc10 21:37 Discharge Assessment: patient administered narcotics - no. The following High Risk 3 Discharge criteria are identified: None. Admitted to Med/Surg accompanied by tech, family with patient, via stretcher, with chart. Condition: good. CT Study completed. Admission hand-off: Report Faxed Fax receipt verified by abi guerrero. Property :Personal belongings accompany Pt. 21:40 Patient left the ED. jf3 Signatures: Dispatcher [employer] EDMS Yair Ireland,RN RN Annette Walton, Reg Reg Carrie Watts, RN RN Madhavi Ruelas,RN RN rs3 Trish Kimbrough, SLITTER OPERATOR SLITTER OPERATOR ar3 Pam Reyes, SLITTER OPERATOR SLITTER OPERATOR ct3 Kristi Jeffries Jordain, SLITTER OPERATOR SLITTER OPERATOR Kimi Bocanegra,RN Sheng Perez, PA-C PA-C cc10 Tony Curran,Ira Jimenez RN Chart Complete MTDD
== END 2016-05-06 18:45 | disposition home or self-care (01) | DRG 244 ==
LOC: M ED 15:18 → M ED INP 20:37 → M MSPAV 21:46 → M PED 05-05 17:36
PROVIDERS: ADMIT Surgery; ATTEND Surgery
PROC: 0W9J30Z Drainage of Pelvic Cavity with Drainage Device, Percutaneous Approach (ICD-10-PCS; principal; 2016-05-05)
DX: K57.80 Diverticulitis of intestine, part unspecified, with perforation and abscess without bleeding (principal); F17.210 Nicotine dependence, cigarettes, uncomplicated

== ENCOUNTER → 2016-05-04 | Outpatient (REF) | payer BC ==
[~2016-05-04] MED LIST: CIPR500T89 PO; FLAG500T PO
== END ==
LOC: M SFHCLERA 11:42
PROVIDERS: ATTEND Nurse Practitioner Family
DX: R30.0 Dysuria (principal)

== ENCOUNTER → 2016-05-15 | Outpatient (CLI) | payer BC ==
[~2016-05-15] MED LIST changes: +GASTROGRAFIN SOLUTION 30ML (Q9963) As Ordered ONE; +ISOVUE-370 76% 100ML VIAL (Q9967) As Ordered ONE
--- NOTE | 2016-05-15 16:33 | REP ---
CT abdomen pelvis without and with IV contrast and with bowel contrast: Comparison is 05/04/2016. On the comparison study there was a large pelvic abscess. This abscess with brain percutaneously with ultrasound guidance on 05/05/2016. Current studies performed for follow up. Pelvis: The drainage catheter seen entering from the anterior abdominal wall left lower quadrant. There is very little if any fluid remaining in the abscess at the tip of the drainage catheter. There is no free fluid in the pelvis. There is no pelvic adenopathy. There is no pneumoperitoneum in the abdomen or pelvis. There are numerous diverticula in the sigmoid colon. There is very mild induration of the mesenteric fat in the region of the previous abscess. The bladder is unremarkable. Abdomen: The visualized lung byrnes are unremarkable. The hepatic parenchyma, gallbladder, pancreas, spleen, adrenals, kidneys, bowel and mesentery are unremarkable. Abdominal aorta is unremarkable. Impression: The pelvic abscess is completely evacuated. There is very little if any remaining fluid at the tip of the drainage catheter. There is mild induration of the mesenteric fat adjacent to the tip of the drainage catheter. No pneumoperitoneum or ascites. No adenopathy. Urinary bladder is unremarkable. There is sigmoid diverticulosis as previously. Impression: The diverticular abscess has been completely evacuated. There is a small amount of induration in the pelvic fat at the distal tip of the drainage catheter. There is a tiny volume of air within the abscess pocket. Signed by Kang Brasher MD 05/15/2016 04:24 P
== END ==
LOC: M RAD 13:51
PROVIDERS: ATTEND Surgery
DX: K57.20 Diverticulitis of large intestine with perforation and abscess without bleeding (principal); Z97.8 Presence of other specified devices
CPT/HCPCS: 74178; Q9963; Q9967